=== PATIENT | male | born 1950 | race Caucasian/White ===

== ENCOUNTER → 2017-01-31 | Outpatient (CLI) | payer MEDICARE, BC ==
--- NOTE | ~2017-01-31 | PUL ---
PATIENT'S NAME: KENN SH[facility] AGE: 66 Y [address] ROOM: [place] [address] LOCATION: [facility] ADMIT DATE: 01/31/2017 Pulmonary DISCHARGE DATE: FAMILY PHYSICIAN: Callum Sands MD ATTENDING PHYSICIAN: Callum Sands NAME OF PROCEDURE: Sleep Study PROCEDURE DATE: 01/31/17 TECH: PAM Elkins TEST #: [facility]# [id number] TECHNICAL PARAMETERS: The patient was studied using [employer] 10/20 measuring system. While the patient was studied, there was continuous monitoring of EEG (8 leads), EOG (2 leads), EKG (3 leads), submental EMG (3 leads), tibial (4 leads), respiratory inductive plethysmography (RIP) for thoracic and abdominal effort, oral and nasal airflow with a thermocouple and pressure transducer, and oximetry. The wireless field technician also performed visual and auditory observations noting things like body position, patient's status, breath sounds, artifact, snoring level and patient comments. Continuous sound was monitored using a 2-way speaker system and video monitoring was performed using an infrared camera. Review of the entire study was performed epoch by epoch utilizing a single epoch and multiple epoch capability sleep system. MEDICAL HISTORY: Patient is a 66-year-old overweight man with a prior history of obstructive sleep apnea. SLEEP STAGE SUMMARY: The patient was studied for 513 minutes of which he slept 432 minutes. He fell asleep in 2.5 minutes and slept for 85% of the night. Sleep architecture revealed a decline in slow wave sleep. RESPIRATORY SUMMARY: Oxygen saturations ranged from 84-92%. Prior to initiating CPAP there were 26 apneas and 28 hypopneas for an apnea/hypopnea index moderately elevated at 17 events per hour. CPAP was initiated. CPAP and was titrated to 14 cm with good control of the respiratory events. EKG SUMMARY: Sinus bradycardia was noted. Otherwise no significant dysrhythmias. LIMB MOVEMENT SUMMARY: No significant periodic limb movements were noted. SUMMARY: Obstructive sleep apnea responsive to CPAP at 14 cm. PATIENT'S NAME: KENN SHARP [facility] AGE: 66 Y [address] ROOM: [place] [address] LOCATION: [facility] ADMIT DATE: 01/31/2017 Pulmonary DISCHARGE DATE: FAMILY PHYSICIAN: Callum Sands MD ATTENDING PHYSICIAN: Callum Sands PLAN: Patient will receive results from the ordering provider. MD LEOLA EVERETT/ /[id number] dtt: 02/02/17 1216 , dtd:
== END | disposition disaster alternative care site (69) ==
LOC: GSLP 20:22
DX: G47.33 Obstructive sleep apnea (adult) (pediatric) (principal); R00.1 Bradycardia, unspecified